=== PATIENT | male | born 1995 | race Two or more races ===

== ENCOUNTER 2022-02-11 22:34 | Emergency (ER) | payer SELFPAY ==
[~2022-02-11] VITALS: Ht 165.1 cm; Wt 65.8 kg
[2022-02-11] MEDS ORDERED: FLUORESCEIN SODIUM OPHTH 1 EA STRIP OP ONE (23:00)
[2022-02-11] MEDS ORDERED: TETRAcaine 5 ML BOTTLE EACHEYE ONE (23:00)
[2022-02-11] MEDS ORDERED: FLUORESCEIN SODIUM OPHTH 1 EA STRIP ONE (23:00)
[2022-02-11] MEDS ORDERED: ACETAMINOPHEN ES 500 MG TABLET ONE (23:26)
[2022-02-11] MEDS ORDERED: ACETAMINOPHEN 325 MG TABLET PO ONE (23:30)
[2022-02-12 04:00] VITALS: BP 120/62
--- NOTE | 2022-02-12 04:37 | NUR ---
Patient discharged to home in stable condition. Written and verbal after care instructions given. Patient verbalizes understanding of instruction.
== END 2022-02-12 04:37 | disposition home or self-care (01) ==
LOC: ER 22:37
DX: S00.33XA Contusion of nose, initial encounter (principal); S50.11XA Contusion of right forearm, initial encounter; S80.01XA Contusion of right knee, initial encounter; S09.90XA Unspecified injury of head, initial encounter; Z60.2 Problems related to living alone; X93.XXXA Assault by handgun discharge, initial encounter; Y93.89 Activity, other specified; Y92.89 Other specified places as the place of occurrence of the external cause; Y99.8 Other external cause status
CPT/HCPCS: 70450-TC; 70486-TC; 73090-TC; 73564-TC